=== PATIENT | male | born 1990 | race Caucasian/White ===

== ENCOUNTER 2024-10-04 20:08 | Emergency (ER) | payer MEDICAID ==
[~2024-10-04] VITALS: Ht 177.8 cm; Wt 70.1 kg
[2024-10-04 20:38] LABS: BASOPHILS % (AUTO) 0.4 % (0-1); EOSINOPHILS # (AUTO) 0.1 X10'3 (0-0.9); EOSINOPHILS % (AUTO) 0.7 % (0-6); HEMATOCRIT 51.3 % (42.0-52.0); LYMPHOCYTES # (AUTO) 1.6 X10'3 (1.1-4.8); LYMPHOCYTES % (AUTO) 16.8 % (21-51); MEAN CORPUSCULAR HEMOGLOBIN 30.3 PG (27.0-31.0); MEAN CORPUSCULAR HGB CONC 35.1 g/dL (33.0-36.5); MEAN CORPUSCULAR VOLUME 86.3 FL (78-98); MONOCYTES # (AUTO) 0.5 X10'3 (0-0.9); MONOCYTES % (AUTO) 5.4 % (2-12); NEUTROPHILS # (AUTO) 7.5 X10'3 (1.8-7.7); NEUTROPHILS % (AUTO) 76.7 % (42-75); PLATELET COUNT 271 X10'3 (140-440); RED BLOOD COUNT 5.94 X10'6 (4.70-6.10); RED CELL DISTRIBUTION WIDTH 13.3 % (11.5-14.5); WHITE BLOOD COUNT 9.8 X10'3 (4.5-11.0)
[2024-10-04 20:54] LABS: ALANINE AMINOTRANSFERASE 42 U/L (12-78); ALBUMIN 4.7 G/DL (3.4-5.0); ALBUMIN/GLOBULIN RATIO 1.3 (1.1-1.5); ALKALINE PHOSPHATASE 69 IU/L (46-116); ANION GAP 7 (8-16); ASPARTATE AMINO TRANSFERASE 23 U/L (10-37); BILIRUBIN,TOTAL 1.5 MG/DL (0.1-1.0); BLOOD UREA NITROGEN 19 MG/DL (7-18); BUN/CREATININE RATIO 19.8 (10.0-20.0); CALCIUM 9.3 MG/DL (8.5-10.1); CHLORIDE 102 MMOL/L (99-107); CREATININE 0.96 MG/DL (0.60-1.10); GLUCOSE 132 MG/DL (70-104); POTASSIUM 3.9 MMOL/L (3.5-5.1); SODIUM 140 MMOL/L (135-145); TOTAL CARBON DIOXIDE 30.8 MMOL/L (24-32); TOTAL PROTEIN 8.4 G/DL (6.4-8.2); eCRCL 109 ML/MIN; eGFR 90 ML/MIN
[2024-10-04 21:03] LABS: PRO BRAIN NATRIURETIC PEPTIDE < 30 PG/ML (0-125)
[2024-10-04] MEDS: magnesium sulf-water 2g/50mL 50 ML IV ONE (21:13)
[2024-10-04] MEDS: normal saline 1000ML IV soln IVB ONE (21:14)
[2024-10-04] MEDS: metoprolol tartrate 1mg/ml inj IV SCH (21:14)
[2024-10-04 21:26] LABS: THYROID STIMULATING HORMONE 2.49 ulU/ml (0.34-4.50)
[2024-10-04] MEDS: diltiazem 5mg/ml 5ml inj. IV ONE (23:56)
[2024-10-05] MEDS: propofol 10mg/ml 20ml vial IV ONE (01:14)
[2024-10-05] MEDS: metoprolol succinate 25mg (24-HOUR) SR. Tablet PO ONE (01:23)
[2024-10-05 01:42] VITALS: BP 115/63; PULSE 67; RESP 18; TEMP 98.4; O2SAT 98
== END 2024-10-05 01:59 | disposition home or self-care (01) ==
LOC: ER 20:08
DX: I48.91 Unspecified atrial fibrillation (principal)
CPT/HCPCS: 36415; 71045; 80053; 83880; 84443; 84484; 85025; 92960; 93005; 94760; 96365; 96366; 96375; 96376; 99285; J2704; J3490; J7030